=== PATIENT | female | born 1970 | race Caucasian/White ===

== ENCOUNTER → 2020-11-22 | Outpatient (CLI) | payer BC ==
[~2020-11-22] MED LIST: ALBUTEROL1.25 MG/3 INH; ASPIRIN81 MG PO; BREO ELLIPTA 11 EACH INH; BUPROPION HCL200 MG PO; BUPROPION XL150 MG PO; BUSPAR 10MG10 MG PO; DIFLUCAN 100 M100 MG PO; FLONASE 0.05% N16 GM; FOLIC ACID 1 MG1 MG PO; HABITROL 21 MG P1 EA TOP; IBUPROFEN800 MG PO; IPRAT-ALBUT 0.5-3 ML NEB; KENALOG CREAM 015 GM EXT; LEVOFLOXACIN500 MG PO; LEXAPRO20 MG PO; LIPITOR TAB 1010 MG PO; LIPITOR TAB 2020 MG PO; LODINE CAP 300300 MG PO; LOPRESSOR 25 MG25 MG PO; LOTRIMIN CREAM45 GM EXT; LOVAZA1 GM PO; METHOTREXATE T2.5 MG PO; MIRALAX17 GM PO; MOBIC15 MG PO; NEURONTIN 300300 MG PO; NEURONTIN 400400 MG PO; NORFLEX 100 MG100 MG PO; NYSTATIN60 GM TOP; NYSTOP60 GM TOP; OMEPRAZOLE20 MG PO; PLAQUENIL 200200 MG PO; PREDNISONE 10 M10 MG PO; PREDNISONE10 MG PO; PREDNISONE5 M1 PO; PROAIR HFA8.5 GM INH; ROBAXIN-750750 MG PO; SINGULAIR10 MG PO; TESSALON PERLE100 MG PO; VITAMIN D250000 UNIT PO; VITAMIN D32000 UNI1 PO; Voltaren Gel 1% TOP; WHEELCHAIR1 EACH; XYZAL5 MG PO; ZITHROMAX250 MG PO; ZYVOX600 MG PO; [UNRECOGNIZED DRUG - SUPPLY]
== END ==
LOC: EXRD 14:57
DX: R93.89 Abnormal findings on diagnostic imaging of other specified body structures (principal); R91.8 Other nonspecific abnormal finding of lung field; Z87.09 Personal history of other diseases of the respiratory system
CPT/HCPCS: 71046

== ENCOUNTER → 2020-11-25 | Outpatient (CLI) | payer BC | LOC: KOH-I 14:52 | DX: R93.89 Abnormal findings on diagnostic imaging of other specified body structures (principal); R91.8 Other nonspecific abnormal finding of lung field; R59.0 Localized enlarged lymph nodes; Z87.09 Personal history of other diseases of the respiratory system | CPT/HCPCS: 71250 ==

== ENCOUNTER → 2021-05-25 | Outpatient (CLI) | payer BC | LOC: KOH-I 01-23 14:30 | DX: J84.9 Interstitial pulmonary disease, unspecified (principal); R91.8 Other nonspecific abnormal finding of lung field | CPT/HCPCS: 71250 ==

== ENCOUNTER → 2021-06-05 | Outpatient (CLI) | payer BC | LOC: HEART 5 14:26 | DX: R06.02 Shortness of breath (principal) | CPT/HCPCS: 94010; 94729 ==

== ENCOUNTER → 2021-07-20 | Outpatient (CLI) | payer BC | LOC: EXRD 09:19 | DX: M25.561 Pain in right knee (principal); M25.562 Pain in left knee | CPT/HCPCS: 73564 ==

== ENCOUNTER → 2021-09-27 | Outpatient (CLI) | payer BC | LOC: MAMO 01-31 15:00 | DX: Z12.31 Encounter for screening mammogram for malignant neoplasm of breast (principal) | CPT/HCPCS: 77063; 77067 ==

== ENCOUNTER 2021-11-30 18:13 | Inpatient (IN) | payer BC ==
[~2021-11-30] VITALS: Ht 167.6 cm; Wt 145.3 kg
[~2021-11-30 18:13] MED LIST changes: +METHOCARBAMOL500 MG PO; -NEURONTIN 300300 MG PO; +NEURONTIN600 MG PO; -ROBAXIN-750750 MG PO
[2021-11-30 19:29] LABS: BORDETELLA PARAPERTUSSIS Not Detected (Not Detectd); BORDETELLA PERTUSSIS Not Detected (Not Detectd); CHLAMYDIA PNEUMONIAE Not Detected (Not Detectd); CORONAVIRUS HKU1 Not Detected (Not Detectd); CORONAVIRUS NL63 Not Detected (Not Detectd); CORONAVIRUS OC43 Not Detected (Not Detectd); CORONOAVIRUS 229E Not Detected (Not Detectd); HUMAN METAPNEUMOVIRUS Not Detected (Not Detectd); HUMAN RHINOVIRUS/ENTEROVIRUS Not Detected (Not Detectd); INFLUENZA A Not Detected (Not Detectd); INFLUENZA B Not Detected (Not Detectd); MYCOPLASMA PNEUMONIAE Not Detected (Not Detectd); PARAINFLUENZA VIRUS 1 Not Detected (Not Detectd); PARAINFLUENZA VIRUS 2 Not Detected (Not Detectd); PARAINFLUENZA VIRUS 3 Not Detected (Not Detectd); PARAINFLUENZA VIRUS 4 Not Detected (Not Detectd); RESPIRATORY SYNCYTIAL VIRUS Not Detected (Not Detectd)
[2021-11-30 19:43] LABS: HEMOGLOBIN 14.5 gm/dl (12.3-15.3); RED BLOOD COUNT 4.73 M/UL (4.00-5.10); WHITE BLOOD COUNT 6.3 K/UL (4.5-11.0)
[2021-11-30 20:52] LABS: SARS-CoV-2 DETECTED (Not Detectd)
[2021-11-30 21:04] LABS: BUN/CREATININE RATIO 10 (0-10)
[2021-12-01 05:57] LABS: HEMOGLOBIN 13.3 gm/dl (12.3-15.3); RED BLOOD COUNT 4.41 M/UL (4.00-5.10)
[2021-12-01 05:58] LABS: WHITE BLOOD COUNT 3.5 K/UL (4.5-11.0)
[2021-12-01 06:13] LABS: BUN/CREATININE RATIO 10 (0-10)
[2021-12-01] MEDS ORDERED: PLAQUENIL200 MG PO (10:26)
[2021-12-01] MEDS ORDERED: MELOXICAM7.5 MG PO (10:27)
[2021-12-01] MEDS ORDERED: IPRAT-ALBUT 0.5-3 ML INH (10:40)
[2021-12-02 07:06] LABS: HEMOGLOBIN 13.2 gm/dl (12.3-15.3); RED BLOOD COUNT 4.44 M/UL (4.00-5.10)
[2021-12-02 07:09] LABS: WHITE BLOOD COUNT 5.4 K/UL (4.5-11.0)
[2021-12-02 07:47] LABS: BUN/CREATININE RATIO 16 (0-10)
--- NOTE | 2021-12-02 11:52 | NUR ---
12/02/21 1150 ROOM AIR SAT 87% OXYGEN BACK ON
[2021-12-03 07:09] LABS: HEMOGLOBIN 12.9 gm/dl (12.3-15.3); RED BLOOD COUNT 4.38 M/UL (4.00-5.10)
[2021-12-03 07:10] LABS: WHITE BLOOD COUNT 7.6 K/UL (4.5-11.0)
[2021-12-03 07:30] LABS: BUN/CREATININE RATIO 19 (0-10)
[2021-12-04 04:53] LABS: HEMOGLOBIN 12.7 gm/dl (12.3-15.3); RED BLOOD COUNT 4.2 M/UL (4.00-5.10); WHITE BLOOD COUNT 8.8 K/UL (4.5-11.0)
[2021-12-04 05:11] LABS: BUN/CREATININE RATIO 19 (0-10)
--- NOTE | 2021-12-04 12:26 | NUR ---
PATIENT O2 SAT 86% ON ROOM AIR.
[2021-12-04] MEDS ORDERED: ELIQUIS 2.5 MG2.5 MG PO (15:16)
[2021-12-04] MEDS ORDERED: DECADRON6 MG PO (15:25)
[2021-12-04] MEDS ORDERED: K-TAB ER20 MEQ PO (15:25)
[2021-12-04] MEDS ORDERED: DOXYCYCLINE HY100 M2 PO (15:25)
[2021-12-04] MEDS ORDERED: BUDESONIDE0.5 MG/2 M NEB (15:28)
[2021-12-04] MEDS ORDERED: BENZONATATE200 MG PO (15:28)
[2021-12-04] MEDS ORDERED: HUMIBID LA TAB600 MG PO (15:28)
== END 2021-12-04 19:33 | disposition home or self-care (01) | DRG 177 ==
LOC: ER1 18:13 → PROG CARE 21:22 → CDU 21:22 → PROG CARE 12-01 03:44 → M/S 12-01 17:19
PROVIDERS: Internal Medicine; Physician Assistant; Preventive Medicine Occupational Medicine; ADMIT Internal Medicine
PROC: XW033E5 Introduction of Remdesivir Anti-infective into Peripheral Vein, Percutaneous Approach, New Technology Group 5 (ICD-10-PCS; 2021-11-30)
PROC: 3E0333Z Introduction of Anti-inflammatory into Peripheral Vein, Percutaneous Approach (ICD-10-PCS; 2021-11-30)
PROC: 8E0ZXY6 Isolation (ICD-10-PCS; principal; 2021-12-01)
DX: U07.1 COVID-19 (principal); J96.01 Acute respiratory failure with hypoxia; J12.82 Pneumonia due to coronavirus disease 2019; Z68.43 Body mass index [BMI] 50.0-59.9, adult; J40 Bronchitis, not specified as acute or chronic; M06.9 Rheumatoid arthritis, unspecified; K21.9 Gastro-esophageal reflux disease without esophagitis; F41.9 Anxiety disorder, unspecified; G89.29 Other chronic pain; F32.A Depression, unspecified; G62.9 Polyneuropathy, unspecified; E66.01 Morbid (severe) obesity due to excess calories; E87.6 Hypokalemia; Z99.81 Dependence on supplemental oxygen; F17.210 Nicotine dependence, cigarettes, uncomplicated; Z79.01 Long term (current) use of anticoagulants; Z82.49 Family history of ischemic heart disease and other diseases of the circulatory system; Z88.1 Allergy status to other antibiotic agents; Z88.5 Allergy status to narcotic agent; Z88.0 Allergy status to penicillin
CPT/HCPCS: 36415; 36600; 71045; 80048; 80053; 82803; 83036; 83735; 84100; 84439; 84443; 85025; 85027; 85379; 85610; 85652; 86140; 87633; 93005; 94640; 94664; 94760; 96374; 96375; 97161; 99285; J0248; J0456; J0696; J1100; J1650; J7030

== ENCOUNTER → 2021-12-15 | Outpatient (CLI) | payer BC ==
[~2021-12-15] MED LIST changes: +BENZONATATE200 MG PO; +BUDESONIDE0.5 MG/2 M NEB; +DECADRON6 MG PO; +DOXYCYCLINE HY100 M2 PO; +ELIQUIS 2.5 MG2.5 MG PO; +HUMIBID LA TAB600 MG PO; +IPRAT-ALBUT 0.5-3 ML INH; +K-TAB ER20 MEQ PO; +MELOXICAM7.5 MG PO; +PLAQUENIL200 MG PO
[2021-12-15 16:42] LABS: BUN/CREATININE RATIO 10 (0-10)
== END ==
LOC: LAB 15:56
PROVIDERS: Family Medicine
DX: U07.1 COVID-19 (principal); J12.82 Pneumonia due to coronavirus disease 2019
CPT/HCPCS: 36415; 71046; 80048

== ENCOUNTER 2022-01-21 19:42 | Inpatient (IN) | payer BC ==
[~2022-01-21] VITALS: Ht 170.2 cm; Wt 148.3 kg
[2022-01-21 21:27] LABS: HEMOGLOBIN 13.2 gm/dl (12.3-15.3); RED BLOOD COUNT 4.43 M/UL (4.00-5.10); WHITE BLOOD COUNT 21.5 K/UL (4.5-11.0)
[2022-01-21 21:49] LABS: BUN/CREATININE RATIO 8 (0-10)
[2022-01-22] MEDS ORDERED: LIPITOR10 MG PO (09:58)
[2022-01-22] MEDS ORDERED: HYDROCODON-ACE1 EAC4 PO (09:58)
[2022-01-22] MEDS ORDERED: MELOXICAM7.5 MG PO (09:59)
[2022-01-22] MEDS ORDERED: BUSPIRONE HCL15 MG PO (09:59)
[2022-01-22] MEDS ORDERED: HUMIRA SQ (10:00)
[2022-01-23 02:44] LABS: HEMOGLOBIN 12.3 gm/dl (12.3-15.3); RED BLOOD COUNT 4.11 M/UL (4.00-5.10); WHITE BLOOD COUNT 21.2 K/UL (4.5-11.0)
[2022-01-23 03:03] LABS: BUN/CREATININE RATIO 20 (0-10)
[2022-01-24 07:43] LABS: BUN/CREATININE RATIO 15 (0-10)
[2022-01-24 08:22] LABS: RED BLOOD COUNT 3.98 M/UL (4.00-5.10); WHITE BLOOD COUNT 16.4 K/UL (4.5-11.0)
[2022-01-25 06:13] LABS: HEMOGLOBIN 12.4 gm/dl (12.3-15.3); RED BLOOD COUNT 4.13 M/UL (4.00-5.10)
[2022-01-25 06:37] LABS: BUN/CREATININE RATIO 17 (0-10)
[2022-01-25] MEDS ORDERED: OMNICEF 300 MG300 MG PO (09:12)
[2022-01-25] MEDS ORDERED: MEDROL DOSEPAK 24 MG PO (09:12)
[2022-01-25] MEDS ORDERED: DOXYCYCLINE HY100 MG PO (09:12)
== END 2022-01-25 11:46 | disposition home or self-care (01) | DRG 871 ==
LOC: ER1 19:42 → CDU 23:09 → PROG CARE 23:09 → MED SURG 4 01-24 13:12
PROVIDERS: Internal Medicine; Physician Assistant Medical; ADMIT Internal Medicine
PROC: 3E03329 Introduction of Other Anti-infective into Peripheral Vein, Percutaneous Approach (ICD-10-PCS; principal; 2022-01-21)
PROC: 3E0333Z Introduction of Anti-inflammatory into Peripheral Vein, Percutaneous Approach (ICD-10-PCS; 2022-01-21)
PROC: 5A0945A Assistance with Respiratory Ventilation, 24-96 Consecutive Hours, High Flow/Velocity Cannula (ICD-10-PCS; 2022-01-22)
DX: A41.9 Sepsis, unspecified organism (principal); J18.9 Pneumonia, unspecified organism; J80 Acute respiratory distress syndrome; J44.0 Chronic obstructive pulmonary disease with (acute) lower respiratory infection; E66.2 Morbid (severe) obesity with alveolar hypoventilation; D84.9 Immunodeficiency, unspecified; E87.2 Acidosis; Z68.43 Body mass index [BMI] 50.0-59.9, adult; R65.20 Severe sepsis without septic shock; M06.9 Rheumatoid arthritis, unspecified; G89.29 Other chronic pain; E87.6 Hypokalemia; K21.9 Gastro-esophageal reflux disease without esophagitis; F41.9 Anxiety disorder, unspecified; F32.A Depression, unspecified; F17.210 Nicotine dependence, cigarettes, uncomplicated; Z99.81 Dependence on supplemental oxygen; Z90.49 Acquired absence of other specified parts of digestive tract; Z83.3 Family history of diabetes mellitus; Z90.710 Acquired absence of both cervix and uterus; Z88.5 Allergy status to narcotic agent; Z88.0 Allergy status to penicillin
CPT/HCPCS: 36415; 36600; 71045; 80048; 80053; 82550; 82553; 82803; 83605; 83735; 83880; 84484; 85025; 85027; 85379; 87040; 87081; 93005; 94640; 94664; 94668; 94760; 96374; 96375; 99284; C9113; J0696; J1100; J1650; J2920; J7030; U0002

== ENCOUNTER → 2022-03-01 | Outpatient (CLI) | payer BC ==
[~2022-03-01] MED LIST changes: +BUSPIRONE HCL15 MG PO; +DOXYCYCLINE HY100 MG PO; +HUMIRA SQ; +HYDROCODON-ACE1 EAC4 PO; +LIPITOR10 MG PO; +MEDROL DOSEPAK 24 MG PO; +OMNICEF 300 MG300 MG PO
== END ==
LOC: KOH-I 12:57
DX: J84.10 Pulmonary fibrosis, unspecified (principal); R91.8 Other nonspecific abnormal finding of lung field
CPT/HCPCS: 71250

== ENCOUNTER → 2022-03-07 | Outpatient (CLI) | payer BC | LOC: HEART 5 16:01 | DX: J84.9 Interstitial pulmonary disease, unspecified (principal) | CPT/HCPCS: 94060; 94729 ==